=== PATIENT | male | born 1985 | race Caucasian/White ===

== ENCOUNTER 2017-03-28 11:08 | Emergency (ER) | payer OTHER ==
[~2017-03-28 11:08] MED LIST: COU5 PO; FER300 PO; GLU5 PO; GLU500 PO; HYDROXYCHLOROQUINE; LOT20 PO; NAP500 PO; NIT6.5 PO; OSC PO; PAX20 PO; PRA20 PO; PRI20 PO; RYT150 PO; SYN75 PO; TEN25 PO
[2017-03-28 12:15] VITALS: BP 108/70
== END 2017-03-28 12:15 | disposition home or self-care (01) ==
LOC: ED 11:08
DX: J45.901 Unspecified asthma with (acute) exacerbation (principal)